=== PATIENT | female | born 1975 | race Caucasian/White ===

== ENCOUNTER 2025-04-24 02:44 | Emergency (ER) | payer SELFPAY ==
[2025-04-24 02:42] VITALS: BP 178/120; PULSE 68; RESP 16; TEMP 36.6; O2SAT 98; BMI 31.1
--- NOTE | 2025-04-24 03:11 | CTR_ITS ---
PROCEDURE INFORMATION: Exam: CT Abdomen And Pelvis Without Contrast Exam date and time: 04/24/2025 3:31 AM Age: 49 years old Clinical indication: Abdominal pain; Prior surgery; Surgery date: 6+ months; Surgery type: Hysterectomy; C/O left flank pain; Additional info: L flank->groin pain TECHNIQUE: Imaging protocol: Computed tomography of the abdomen and pelvis without contrast. Radiation optimization: All CT scans at this facility use at least one of these dose optimization techniques: automated exposure control; mA and/or kV adjustment per patient size (includes targeted exams where dose is matched to clinical indication); or iterative reconstruction. COMPARISON: No relevant prior studies available. RADIATION DOSE METRICS: Total DLP (mGy-cm): 573.06 FINDINGS: Liver: Normal. No mass. Gallbladder and biliary ducts: Normal. No calcified stones. No ductal dilation. Pancreas: Normal. No ductal dilation. Spleen: Normal. No splenomegaly. Adrenal glands: Normal. No mass. Kidneys and ureters: Nonobstructing 12 mm stone in the left renal pelvis. Left-sided parapelvic renal cysts. Stomach and bowel: Diverticulosis, without acute diverticulitis. No small bowel obstruction. No free air. Appendix: No evidence of appendicitis. Intraperitoneal space: See Stomach and bowel finding. Vasculature: Atherosclerotic changes of the aorta. Lymph nodes: Unremarkable. No enlarged lymph nodes. Urinary bladder: Unremarkable as visualized. Reproductive: Hysterectomy. Bones/joints: Degenerative changes of the spine. Disc bulge at L2-L3 with severe spinal canal stenosis. Soft tissues: Unremarkable. CT/CT kidney stone [id number] IMPRESSION: 1. Nonobstructing 12 mm stone in the left renal pelvis. No hydronephrosis. 2. Diverticulosis, without acute diverticulitis. No small bowel obstruction. No free air. 3. Hysterectomy. 4. Disc bulge at L2-L3 with severe spinal canal stenosis. COMMENTS: Consistent with the [employer]'s Incidental Findings Committee white paper (J Am Jany Radiol 2018): Any incidental renal lesion less than 1 cm or classified as too small to characterize, or any incidental cystic renal lesion characterized as simple-appearing, is likely benign. No follow-up imaging is recommended for these lesions per consensus recommendations based on imaging criteria.
[2025-04-24 03:17] VITALS: RESP 20
[2025-04-24] MEDS: morphine 4 mg/mL SDV 1 mL IVP (03:17)
[2025-04-24] MEDS: ondansetron 2 mg/ML SDV 2 mL 4 MG IVP (03:18)
[2025-04-24 03:22] LABS: Hematocrit 44.1 % (36-47); Hemoglobin 14.80 g/dL (11.27-16.99); Mean Corpuscular HGB Conc 33.6 g/dL (30-55); Mean Corpuscular Hemoglobin 27.1 pg (27-33); Mean Corpuscular Volume 80.6 fl (85-98); Nucleated Red Blood Cells % 0 %; Platelet Count 247 10^3/cmm (157-399); Red Blood Count 5.47 10^6/uL (3.85-5.65); White Blood Count 10.68 10^3/uL (3.29-11.43)
[2025-04-24 03:23] VITALS: BP 178/109; O2SAT 98
[2025-04-24 03:38] LABS: Alanine Aminotransferase 11 U/L (0-33); Albumin Level 4.1 g/dL (3.5-5.2); Alkaline Phosphatase 118 U/L (35-105); Aspartate Amino Transferase 14 U/L (0-32); Blood Urea Nitrogen 14 mg/dL (6-20); Calcium 8.9 mg/dL (8.5-10.5); Carbon Dioxide 21 mmol/L (22-29); Chloride 101 mmol/L (98-107); Globulin 3.5 g/dL (1.3-4.6); Glucose 151 mg/dL (65-115); Lipase 21 U/L (13-60); Magnesium 2.0 mg/dL (1.7-2.3); Osmolality Calculated 279 mOsm/kg (285-295); Sodium 133 mmol/L (136-145); Total Protein 7.6 g/dL (6.6-8.7)
[2025-04-24 03:50] LABS: Anion Gap 15.3 (5-19); Potassium 4.3 mmol/L (3.5-5.1)
[2025-04-24 04:06] LABS: CRP High Sensitivity Cardiac 0.260 mg/dL (0.0-0.3)
[2025-04-24 04:16] LABS: Glucose Urine UA Negative (Normal); Nitrate Urine Negative (Negative); Specific Gravity, Urine 1.028 (1.005-1.030)
[2025-04-24 04:18] LABS: Add Urine Microscopic? YES; Universal Test for UA Present (0)
--- NOTE | 2025-04-24 05:11 | ED_ITS ---
HPI - Abdominal Pain 2 General: Chief Complaint: Abdominal Pain Stated Complaint: possible kidney stone Time Seen by Provider: 04/24/25 02:50 History of Present Illness: Patient presents with a history of hypertension and kidney stones who presents to the ED with left flank pain. The pain is waxing and waning, sharp in nature, radiates to the front of her abdomen, had 1 episode of nausea vomiting tonight, no diarrhea or constipation, some minor dysuria. She has had no recent fevers, chills, diaphoresis, changes in appetite. No chest pain, shortness of breath, cough. No prior abdominal surgeries. Associated Symptoms: Reports nausea and vomiting Related Data Previous Rx's ?Medication ?Instructions ?Recorded ondansetron 4 mg disintegrating 4 mg PO Q8H PRN nausea and 04/24/25 tablet vomiting 5 days #20 tabs oxycodone 5 mg tablet 5 mg PO Q8H PRN pain #10 tab s 04/24/25 tamsulosin 0.4 mg capsule (Flomax) 0.4 mg PO DAILY #30 caps 04/24/25 Review of Systems 2 General: Reports: 10 or more systems reviewed and unremarkable except in HPI and below GI: Reports: nausea and vomiting : Reports: flank pain Physical Exam 2 Narrative: EXAM NARRATIVE: Appears in mild distress secondary to pain, afebrile, vital stable on arrival, overall well-appearing. Abdominal exam soft, nondistended, no reproducible tenderness, mild left CVA tenderness. Breathing comfortably on room air, no adventitious lung sounds, normal sinus rhythm with no murmurs, no leg swelling, 2+ pulses throughout, good cap refill, GCS 15. Course 2 Vital Signs: Vital signs: Vital Signs Temperature 98 F 04/24/25 02:42 Pulse Rate 68 04/24/25 02:42 Respiratory Rate 20 H 04/24/25 03:17 Blood Pressure 178/109 04/24/25 03:23 Pulse Oximetry 98 04/24/25 03:23 MDM - Abdominal Pain Medical Decision Making -ddx: Nephrolithiasis, pyelonephritis, perinephric abscess, aortic pathology, enteritis, pneumonia - Patient overall well-appearing, with 1 day of waxing waning left flank pain, minor urinary symptoms, 1 episode of nausea vomiting, no recent flulike symptoms, no history of abdominal surgeries, will obtain abdominal labs, CT abdomen pelvis, provide pain control, fluids and reassess. - Patient ultimately with reassuring labs, she had no systemic signs of infection including leukocytosis, fever, tachycardia, low CRP. She had no significant electrolyte abnormality, no AV, had mild alk phos elevation. Her urine had a moderate amount of blood and urate crystals. Her CT scan had a large 12 mm nonobstructing stone in her left pelvis but with her clinical signs and symptoms, believe she passed a small stone just recently because she had much pain relief shortly after the fluids had finished, no UTI behind the stone. P.o. challenged, feeling completely symptom-free at this time and discharged in stable condition with prescriptions for meds if symptoms recur, referral to urology as needed and with strict return precautions. Lab Data 04/24/25 02:48 04/24/25 02:48 Labs/Radiology: Radiology Impressions Abdomen/Pelvis CT 04/24/25 03:11 IMPRESSION: 1. Nonobstructing 12 mm stone in the left renal pelvis. No hydronephrosis. 2. Diverticulosis, without acute diverticulitis. No small bowel obstruction. No free air. 3. Hysterectomy. 4. Disc bulge at L2-L3 with severe spinal canal stenosis. COMMENTS: Consistent with the [employer]'s Incidental Findings Committee white paper (J Am Jany Radiol 2018): Any incidental renal lesion less than 1 cm or classified as too small to characterize, or any incidental cystic renal lesion characterized as simple-appearing, is likely benign. No follow-up imaging is recommended for these lesions per consensus recommendations based on imaging criteria. Laboratory Results WBC 10.68 10^3/uL (3.29-11.43) 04/24/25 02:48 RBC 5.47 10^6/uL (3.85-5.65) 04/24/25 02:48 Hgb 14.80 g/dL (11.27-16.99) 04/24/25 02:48 Hct 44.1 % (36-47) 04/24/25 02:48 MCV 80.6 fl (85-98) L 04/24/25 02:48 MCH 27.1 pg (27-33) 04/24/25 02:48 MCHC 33.6 g/dL (30-55) 04/24/25 02:48 RDW 13.6 % (12.1-15.1) 04/24/25 02:48 Plt Count 247 10^3/cmm (157-399) 04/24/25 02:48 MPV 10.6 fL (7.4-10.4) H 04/24/25 02:48 Neut % (Auto) 85.9 % 04/24/25 02:48 Lymph % (Auto) 11.2 % 04/24/25 02:48 [place] % (Auto) 2.2 % 04/24/25 02:48 Eos % (Auto) 0.0 % 04/24/25 02:48 Baso % (Auto) 0.3 % 04/24/25 02:48 Neut # (Auto) 9.17 10^3/uL (1.8-7.7) H 04/24/25 02:48 Lymph # (Auto) 1.2 10^3/uL (0.8-4.8) 04/24/25 02:48 [place] # (Auto) 0.2 10^3/uL (0.2-0.9) 04/24/25 02:48 Eos # (Auto) 0.0 10^3/uL (0.0-0.8) 04/24/25 02:48 Baso # (Auto) 0.0 10^3/uL (0.0-0.1) 04/24/25 02:48 Nucleated RBC % (auto) 0 % 04/24/25 02:48 Nucleated RBCs # 0.0 /100WBC 04/24/25 02:48 Sodium 133 mmol/L (136-145) L 04/24/25 02:48 Potassium 4.3 mmol/L (3.5-5.1) 04/24/25 02:48 Chloride 101 mmol/L (98-107) 04/24/25 02:48 Carbon Dioxide 21 mmol/L (22-29) L 04/24/25 02:48 Anion Gap 15.3 (5-19) 04/24/25 02:48 BUN 14 mg/dL (6-20) 04/24/25 02:48 Creatinine 0.7 mg/dL (0.5-0.9) 04/24/25 02:48 GFR Calculation 88.6 mL/min (90-130) L 04/24/25 02:48 Glucose 151 mg/dL (65-115) H 04/24/25 02:48 Calculated Osmolality 279 mOsm/kg (285-295) L 04/24/25 02:48 Calcium 8.9 mg/dL (8.5-10.5) 04/24/25 02:48 Phosphorus 2.8 mg/dL (2.5-4.5) 04/24/25 02:48 Magnesium 2.0 mg/dL (1.7-2.3) 04/24/25 02:48 Total Bilirubin 0.8 mg/dL (0.15-1.2) 04/24/25 02:48 AST 14 U/L (0-32) 04/24/25 02:48 ALT 11 U/L (0-33) 04/24/25 02:48 Alkaline Phosphatase 118 U/L (35-105) H 04/24/25 02:48 C-React Prot High Sens 0.260 mg/dL (0.0-0.3) 04/24/25 02:48 Total Protein 7.6 g/dL (6.6-8.7) 04/24/25 02:48 Albumin 4.1 g/dL (3.5-5.2) 04/24/25 02:48 Globulin 3.5 g/dL (1.3-4.6) 04/24/25 02:48 Lipase 21 U/L (13-60) 04/24/25 02:48 Urine Color Yellow (Yellow) 04/24/25 04:09 Urine Appearance Turbid (CLEAR) A 04/24/25 04:09 Urine pH 5.5 (5-7) 04/24/25 04:09 Ur Specific [place] 1.028 (1.005-1.030) 04/24/25 04:09 Urine Protein 2+ (Negative) A 04/24/25 04:09 Urine Glucose (UA) Negative (Normal) 04/24/25 04:09 Urine Ketones 1+ (Negative) H 04/24/25 04:09 Urine Blood 3+ (Negative) A 04/24/25 04:09 Urine Nitrate Negative (Negative) 04/24/25 04:09 Urine Bilirubin Negative (Negative) 04/24/25 04:09 Urine Urobilinogen 1.0 mg/dL (Negative) 04/24/25 04:09 Ur Leukocyte Esterase Negative (Negative) 04/24/25 04:09 Urine RBC 21-50 /hpf (0-2) H 04/24/25 04:09 Urine WBC 0-5 /hpf (0-5) 04/24/25 04:09 Ur Squamous Epith Cells 0-5 /hpf (0-5) 04/24/25 04:09 Uric Acid Crystals 25-40 /hpf H 04/24/25 04:09 Amorphous Sediment Not Reportable 04/24/25 04:09 Urine Bacteria None seen /hpf (NONE) 04/24/25 04:09 Hyaline Casts 0.40 /lpf 04/24/25 04:09 Urine Yeast 1+ /hpf H 04/24/25 04:09 All radiology interpretation(s) finalized by discharge Discharge Plan Discharge Patient Disposition: Home Clinical Impression: Calculus of kidney Condition: Stable Prescriptions: New oxycodone 5 mg tablet 5 mg PO Q8H PRN (Reason: pain) Qty: 10 0RF tamsulosin [Flomax] 0.4 mg capsule 0.4 mg PO DAILY Qty: 30 0RF ondansetron 4 mg tablet,disintegrating 4 mg PO Q8H PRN (Reason: nausea and vomiting) 5 Days Qty: 20 0RF Discharge Orders: Discharge ED (Routine); Ordered 04/24/25 Ordered By: Ethan Kraus Referrals: Baltazar Rosario MD [Referring, Urology] - 4-7 days Discharge Diet: Usual diet Discharge Activity: Increase activity as tolerated Patient Instructions: Abdominal Pain (ED), Opioid Safety, Pain Management, Patient Portal & Michelle Instructions Activity Restrictions/Additional Instructions: You were seen for your back pain, you were evaluated with a CT scan and labs which found you to have a large kidney stone stone your kidney and then some smaller kidney stones that have probably just passed in your urine, because your labs were otherwise reassuring you were deemed stable for discharge home. The best prevention for future kidney stones is ensuring you stay hydrated. If you would do develop similar pain, start taking the Flomax once daily to help push along the stone. Alternate Tylenol 650 mg and ibuprofen 4 to milligrams every 4 hours for the pain, use oxycodone 5 mg every 8 hours as needed for breakthrough pain on top of this. He uses Zofran, 4 mg up to 3 times a day for nausea. If you wish to further have your kidney stones evaluated, make a follow-up appointment with the urology clinic listed above. Return to the ED with severe worsening of your pain, inability to urinate, continuous vomiting, fevers, episodes of passing out, any other emergent concerns. Print Language: Chilean Coding Level of Care Code ED [employer] for Crow Yu
[2025-04-24 05:21] VITALS: BP 148/100
[2025-04-24 05:38] VITALS: BP 135/96; PULSE 82; O2SAT 98
== END 2025-04-24 05:40 | disposition home or self-care (01) ==
PROVIDERS: Emergency Provider Student in an Organized Health Care Education/Training Program
DX: N20.0 Calculus of kidney (principal)
CPT/HCPCS: 74176; 80053; 81001; 83690; 83735; 84100; 85025; 86141; 87086; 96361; 96374; 96375; 99285; J1885; J2270; J2405; J7030

== ENCOUNTER 2025-05-12 10:50 | Emergency (ER) | payer SELFPAY ==
[2025-05-12 10:57] VITALS: BP 198/119; PULSE 69; RESP 17; TEMP 36.6; O2SAT 100; BMI 30.5
--- NOTE | 2025-05-12 12:14 | CT_ITS ---
WS: [id number] CT ABDOMEN AND PELVIS NONCONTRAST HISTORY: L flank pain TECHNIQUE: Imaging performed through the abdomen and pelvis. Coronal and sagittal reformats are submitted. All CT scans at [facility] use at least one of these dose optimization techniques: automated exposure control; mA and/or kV adjustment per patient size (includes targeted exams where dose is matched to clinical indication); or iterative reconstruction. DLP: 485.53 mGy.cm COMPARISON: 04/24/2025 Lower thorax: Lung bases are clear. Visualized heart is normal. Small hiatal hernia. Liver: Normal size liver. No mass or bile duct dilatation. Gallbladder: Normal gallbladder. No pericholecystic fluid or cholelithiasis. No gallbladder wall thickening. Pancreas: Normal size and attenuation. Normal pancreatic duct. No pancreatitis or mass. Spleen: Normal. Adrenal glands: Normal. No mass. Right kidney: Normal size kidney with no mass or hydronephrosis. Left kidney: Ovoid calcification in the central LEFT renal pelvis measures 7 x 12 mm. Similar appearance send location as 04/24/2025. There are additional left-sided parapelvic cysts. The LEFT ureter is normal caliber. Aorta: Mild atherosclerosis abdominal aorta with no aneurysm. No free fluid, intraperitoneal air or significant lymphadenopathy. GI tract: Normal noncontrast imaging of the stomach, small bowel and colon. No obstruction or wall thickening. Normal appendix. Abdominal wall: Negative. No hernia. Pelvis: No fluid or adenopathy. Prior hysterectomy. Osseous structures: Degenerative disc disease at L3-4. CT/CT kidney stone [id number] IMPRESSION: 1. Calcification in the central LEFT renal pelvis measures 7 x 12 mm. Similar in appearance to 04/24/2025. There is no significant inflammation associated wi th the renal calcification. Could be causing intermittent obstruction. No perin ephric stranding. 2. No free fluid or adenopathy. 3. Prior hysterectomy.
--- NOTE | 2025-05-12 12:14 | ED_ITS ---
HPI - Abdominal Pain 2 General: Chief Complaint: Abdominal Pain Stated Complaint: L side Pain towards kidney N Time Seen by Provider: 05/12/25 12:11 Source: patient Mode of arrival: ambulatory Limitations: no limitations History of Present Illness: 49-year-old female with history of kidne y stone states she was seen here on April 24 and was diagnosed with nonobstructing stones states that she is continue to have daily pain. States the pain is sharp in nature rates it a 9 out of 10 denies any dysuria denies any vomiting. She denies any worse improved factors. Related Data Previous Rx's ?Medication ?Instructions ?Recorded tamsulosin 0.4 mg capsule (Flomax) 0.4 mg PO DAILY #30 caps 04/24/25 oxycodone 5 mg tablet 5 mg PO Q8H PRN pain #10 tab s 05/12/25 Allergies Allergy/AdvReac Type Severity Reaction Status Date / Time No Known Allergies Allergy Verified 05/12/25 11:00 Physical Exam 2 Const: COMMON NORMALS: no acute distress, patient oriented x3 and healthy appearing HENMT: COMMON NORMALS: normocephalic and atraumatic HEAD & SCALP: n ormocephalic and atraumatic Neck/C-Spine: COMMON NORMALS: full ROM and supple Chest: COMMONS NORMALS: normal inspection of the chest Resp: COMMON NORMALS: normal respiratory effort Cardio: COMMON NORMALS: regular rate, regular rhythm and No murmurs present (Cardio) RATE: regular rate RHYTHM: regular rhythm GI: COMMON NORMALS: Normal to inspection, nondistended, normoactive bowel sounds present, Soft to palpation, non-tender and no masses PALPATION: Yes Soft to palpation Extremity: COMMON NORMALS: normal to inspection and full ROM Neuro: COMMON NORMALS: patient oriented x3, moves all extremities and no focal motor deficits Psych: COMMON NORMALS: mental status grossly normal, Normal thought process present and cooperative THOUGHT PROCESS: Normal thought process present Skin: COMMON NORMALS: no rashes or lesions noted and no wounds GENERAL SKIN EXAM: no rashes or lesions noted Course 2 Vital Signs: Vital signs: Vital Signs Temperature 97.9 F 05/12/25 10:57 Pulse Rate 65 05/12/25 14:05 Respiratory Rate 16 05/12/25 12:28 Blood Pressure 148/102 05/12/25 14:05 Pulse Oximetry 96 05/12/25 14:05 Oxygen Delivery Me thod Room Air 05/12/25 14:05 MDM - Abdominal Pain Medical Decision Making Patient presents here with flank abdominal pain differential includes pyelonephritis, kidney stone, diverticulitis. Did review CT scan does show a kidney stone but no signs of obstruction patient has no significant lab normalities no signs of urinary tract infection or pyelonephritis. Her pain has improved here she is stable for discharge at this time likely having some intermittent pain from the kidney stone she is to follow-up with urology return if worsening she understands agrees to plan. Medical Records I reviewed the patient's medical records. Lab Data I reviewed the patient's lab results. 05/12/25 12:16 05/12/25 12:16 Labs/Radiology: Radiology Impressions Abdomen/Pelvis CT 05/12/25 12:14 IMPRESSION: 1. Calcification in the central LEFT renal pelvis measures 7 x 12 mm. Similar in appearance to 04/24/2025. There is no significant inflammation associated with the renal calcification. Could be causing intermittent obstruction. No perinephric stranding. 2. No free fluid or adenopathy. 3. Prior hysterectomy. Laboratory Results WBC 12.66 10^3/uL (3.29-11.43) H 05/12/25 12:16 RBC 5.82 10^6/uL (3.85-5.65) H 05/12/25 12:16 Hgb 15.50 g/dL (11.27-16.99) 05/12/25 12:16 Hct 48.8 % (36-47) H 05/12/25 12:16 MCV 83.8 fl (85-98) L 05/12/25 12:16 MCH 26.6 pg (27-33) L 05/12/25 12:16 MCHC 31.8 g/dL (30-55) 05/12/25 12:16 RDW 13.2 % (12.1-15.1) 05/12/25 12:16 Plt Count 286 10^3/cmm (157-399) 05/12/25 12:16 MPV 9.2 fL (7.4-10.4) 05/12/25 12:16 Neut % (Auto) 81.3 % 05/12/25 12:16 Lymph % (Auto) 15.0 % 05/12/25 12:16 [place] % (Auto) 2.9 % 05/12/25 12:16 Eos % (Auto) 0.3 % 05/12/25 12:16 Baso % (Auto) 0.2 % 05/12/25 12:16 Neut # (Auto) 10.28 10^3/uL (1.8-7.7) H 05/12/25 12:16 Lymph # (Auto) 1.9 10^3/uL (0.8-4.8) 05/12/25 12:16 [place] # (Auto) 0.4 10^3/uL (0.2-0.9) 05/12/25 12:16 Eos # (Auto) 0.0 10^3/uL (0.0-0.8) 05/12/25 12:16 Baso # (Auto) 0.0 10^3/uL (0.0-0.1) 05/12/25 12:16 Nucleated RBC % (auto) 0 % 05/12/25 12:16 Nucleated RBCs # 0.0 /100WBC 05/12/25 12:16 Sodium 138 mmol/L (136-145) 05/12/25 12:16 Potassium 3.9 mmol/L (3.5-5.1) 05/12/25 12:16 Chloride 103 mmol/L (98-107) 05/12/25 12:16 Carbon Dioxide 21 mmol/L (22-29) L 05/12/25 12:16 Anion Gap 17.9 (5-19) 05/12/25 12:16 BUN 16 mg/dL (6-20) 05/12/25 12:16 Creatinine 0.9 mg/dL (0.5-0.9) 05/12/25 12:16 GFR Calculation 66.3 mL/min (90-130) L 05/12/25 12:16 Glucose 121 mg/dL (65-115) H 05/12/25 12:16 Calculated Osmolality 288 mOsm/kg (285-295) 05/12/25 12:16 Calcium 9.2 mg/dL (8.5-10.5) 05/12/25 12:16 Total Bilirubin 0.3 mg/dL (0.15-1.2) 05/12/25 12:16 AST 13 U/L (0-32) 05/12/25 12:16 ALT 12 U/L (0-33) 05/12/25 12:16 Alkaline Phosphatase 100 U/L (35-105) 05/12/25 12:16 Total Protein 8.1 g/dL (6.6-8.7) 05/12/25 12:16 Albumin 4.4 g/dL (3.5-5.2) 05/12/25 12:16 Globulin 3.7 g/dL (1.3-4.6) 05/12/25 12:16 Lipase 20 U/L (13-60) 05/12/25 12:16 Urine Color Yellow (Yellow) 05/12/25 12:00 Urine Appearance Clear (CLEAR) 05/12/25 12:00 Urine pH 5.5 (5-7) 05/12/25 12:00 Ur Specific [place] 1.028 (1.005-1.030) 05/12/25 12:00 Urine Protein 2+ (Negative) A 05/12/25 12:00 Urine Glucose (UA) Negative (Normal) 05/12/25 12:00 Urine Ketones Negative (Negative) 05/12/25 12:00 Urine Blood 3+ (Negative) A 05/12/25 12:00 Urine Nitrate Negative (Negative) 05/12/25 12:00 Urine Bilirubin Negative (Negative) 05/12/25 12:00 Urine Urobilinogen 0.2 mg/dL (Negative) 05/12/25 12:00 Ur Leukocyte Esterase Negative (Negative) 05/12/25 12:00 Urine RBC >100 /hpf (0-2) H 05/12/25 12:00 Urine WBC 0-5 /hpf (0-5) 05/12/25 12:00 Ur Squamous Epith Cells 0-5 /hpf (0-5) 05/12/25 12:00 Amorphous Sediment Not Reportable 05/12/25 12:00 Urine Bacteria None seen /hpf (NONE) 05/12/25 12:00 Hyaline Casts 0.81 /lpf 05/12/25 12:00 All radiology interpretation(s) finalized by discharge Discharge Plan Discharge Patient Disposition: Home Clinical Impression: Kidney stone Condition: Stable Prescriptions: Continued oxycodone 5 mg tablet 5 mg PO Q8H PRN (Reason: pain) Qty: 10 0RF No Action tamsulosin [Flomax] 0.4 mg capsule 0.4 mg PO DAILY Qty: 30 0RF Discharge Orders: Discharge ED (Routine); Ordered 05/12/25 Ordered By: Harley Brown Discharge Diet: Advance as tolerated Discharge Activity: Resume usual activity Patient Instructions: Kidney Stones (ED), Opioid Safety Print Language: Icelandic Coding Level of Care Code ED Color Television Console Monitor for Crow Yu
[2025-05-12 12:22] LABS: Hematocrit 48.8 % (36-47); Hemoglobin 15.50 g/dL (11.27-16.99); Mean Corpuscular HGB Conc 31.8 g/dL (30-55); Mean Corpuscular Hemoglobin 26.6 pg (27-33); Mean Corpuscular Volume 83.8 fl (85-98); Nucleated Red Blood Cells % 0 %; Platelet Count 286 10^3/cmm (157-399); Red Blood Count 5.82 10^6/uL (3.85-5.65); White Blood Count 12.66 10^3/uL (3.29-11.43)
[2025-05-12 12:28] VITALS: RESP 16; O2SAT 99
[2025-05-12] MEDS: ondansetron 2 mg/ML SDV 2 mL 4 MG IVP (12:28)
[2025-05-12] MEDS: morphine 4 mg/mL SDV 1 mL IVP (12:28)
[2025-05-12 12:34] LABS: Glucose Urine UA Negative (Normal); Nitrate Urine Negative (Negative); Specific Gravity, Urine 1.028 (1.005-1.030)
[2025-05-12 12:39] LABS: Add Urine Microscopic? YES
[2025-05-12 12:44] LABS: Alanine Aminotransferase 12 U/L (0-33); Albumin Level 4.4 g/dL (3.5-5.2); Alkaline Phosphatase 100 U/L (35-105); Anion Gap 17.9 (5-19); Aspartate Amino Transferase 13 U/L (0-32); Blood Urea Nitrogen 16 mg/dL (6-20); Calcium 9.2 mg/dL (8.5-10.5); Carbon Dioxide 21 mmol/L (22-29); Chloride 103 mmol/L (98-107); Globulin 3.7 g/dL (1.3-4.6); Glucose 121 mg/dL (65-115); Lipase 20 U/L (13-60); Osmolality Calculated 288 mOsm/kg (285-295); Potassium 3.9 mmol/L (3.5-5.1); Sodium 138 mmol/L (136-145); Total Protein 8.1 g/dL (6.6-8.7)
[2025-05-12 12:51] VITALS: BP 183/126; O2SAT 97
[2025-05-12 13:22] VITALS: BP 148/95; PULSE 67; O2SAT 97
--- NOTE | 2025-05-12 13:23 | PC.NURSE ---
Assumed Pt. care.
[2025-05-12 14:05] VITALS: BP 148/102; PULSE 65; O2SAT 96
[2025-05-12 14:18] VITALS: BP 148/108; PULSE 69; O2SAT 95
== END 2025-05-12 14:18 | disposition home or self-care (01) ==
PROVIDERS: Emergency Provider Emergency Medicine
DX: N20.0 Calculus of kidney (principal); Z87.442 Personal history of urinary calculi
CPT/HCPCS: 36415; 74176; 80053; 81001; 83690; 85025; 87086; 96374; 96375; 99285; J1885; J2270; J2405

== ENCOUNTER 2025-05-13 22:43 | Emergency (ER) | payer SELFPAY ==
[2025-05-13 22:44] VITALS: BP 179/113; PULSE 84; RESP 16; TEMP 36.3; O2SAT 100; BMI 30.5
--- OUTSIDE RECORDS SUMMARY | 2025-05-13 22:48 | XMS_ITS | Clinical Summary ---
Author Organization [facility] Address [address] [place] [id number] Care Team Providers Care [employer] [employer] Name Role Phone Charlee Decker MD Primary Care Provider [phone] Allergies No known active allergies Medications ondansetron (ZOFRAN) 4 mg TabletIndicatio ns:Nephrolithia sis Take 1 Tablet (4 mg) by mouth every 8 hours as needed for Nausea/Emesi s. 21 Tablet 1 07/31/2024 Active traMADoL (Ultram) 50 mg tabletIndicatio ns:Nephrolithia sis Take 1 Tablet (50 mg) by mouth every 6 hours as needed for Pain. 56 Tablet 08/17/2024 Active naproxen (NAPROSYN) 250 mg tabletIndicatio ns:Flank pain,Abdominal pain, acute, left lower quadrant Take 1 Tablet (250 mg) by mouth 2 times daily with meals. 30 Tablet 1 09/07/2024 Active HYDROcodone-jono taminophen (NORCO) 5-325 mg tabletIndicatio ns:Nephrolithia sis Take 1 Tablet by mouth every 8 hours as needed for Pain, Moderate. Max Daily Amount: 3 Tablets 21 Tablet 09/17/2024 Active Active Problems Problem Noted Date Diagnosed Date Nephrolithiasis 07/31/2024 Migraine with aura and witho ut status migrainosus, not intractable 07/31/2024 Total Hysterectomy 07/31/2024 Family history of colon canc er requiring screening colonoscopy 07/31/2024 Encounters Date Type Department Care Team Description 04/24/2025 12:55 AM [facility] - 04/24/2025 11:59 PM [facility] Hospital Encounter [facility] Emergency Medical Services [address] [phone] Ambulance, [facility] Discharge Disposition: [facility] 03/24/2025 External Device Data STL ABSTRACTION Provider, Abstract 03/23/2025 External Device Data ST[facility] ABSTRACTION Provider, Abstract 02/16/2025 External Device Data STL ABSTRACTION Provider, Abstract from Last 3 Months Family History Medical History Relation Name Comments Colon Cancer Father Relation Name Status Comments Father Mother Alive Social History Tobacco Use Types Packs/Day Years Used Date Smoking Tobacco: Never Smokeless Tobacco: Never Tobacco Cessation:Counseling Given: Not Answered Alcohol Use Standard Drinks/Week Comments Never 0 (1 standard drink = 0.6 oz pur e alcohol) Comments No Sex and Gender Information Value Date Recorded Sex Assigned at Not on file Legal Sex Female 8:21 AM [facility] Gender Identity Not on file Sexual Orientation Not on file Last Filed Vital Signs Vital Sign Reading Time Taken Comments Blood Pressure 170/109 09/07/2024 2:00 PM CDT Pulse 105 09/07/2024 1:41 PM CDT Temperature 37.2 C (98.9 F) 09/07/2024 1:41 PM CDT Respiratory Rate 18 09/07/2024 1:41 PM CDT Oxygen Saturation 100% 09/07/2024 1:41 PM CDT Inhaled Oxygen Concentration - - Weight 69 kg (152 lb 3.2 oz) 09/07/2024 1:41 PM CDT Height 160 cm (5' 3 ) 09/07/2024 1:41 PM CDT Body Mass Index 26.96 09/07/2024 1:41 PM CDT Plan of Treatment Health Maintenance Due Date Last Done Comments Pre-Diabetes and Diabetes Screening 1974 DTAP/TDAP/TD VACCINES (1 - Tdap) 1993 HEPATITIS B VACCINES (1 of 3 - 19+ 3-dose series) 10/01 COLORECTAL SCREENING 10/11/2019 Colorectal Cancer Screening 10/11/2019 FIT-DNA Q 3 years 10/11/2019 FIT/FOBT Q 1 year 10/11/2019 Flex Sig/CT Colonography Q 5 years 10/11/2019 ZOSTER VACCINE (1 of 2) 2024 INFLUENZA VACCINE (#1) 2025 BREAST CANCER SCREENING 09/10/2025 09/10/2024 Procedures Procedure Name Priority Date/Time Associated Diagnosis Comments MAMMO 3D LUIS SCREEN BILAT W OR WO CAD Routine 09/10/2024 10:32 AM CDT Screening mammogram, encounter for from Last 3 Months or Most Recently Relevant to Health Maintenance Results * MAMMO 3D LUIS SCREEN BILAT W OR WO CAD (09/10/2024 10:32 AM CDT) Anatomical Region Laterality Modality Breast Bilateral Mammography, Dig ital Radiography Impressions 09/16/2024 4:28 PM CDT : No mammographic evidence of malignancy. BI-RADS ASSESSMENT: 1 - Negative RECOMMENDATION: Routine annual screening mammography. Narrative 09/16/2024 4:28 PM CDT EXAM: MAMMO SCRN BILAT 3D LUIS W OR WO CAD INDICATION: Screening COMPARISON: This is the patient's Baseline Mammogram. No comparisons are available. BREAST COMPOSITION: There are scattered areas of fibroglandular density. FINDINGS: RIGHT BREAST: There are no suspicious masses, calcifications, or areas of architectural distortion. LEFT BREAST: There are no suspicious masses, calcifications, or areas of architectural distortion. Karolyn Santos [employer] MAMMO ORDERABLES Final R esult from Last 3 Months or Most Recently Relevant to Health Maintenance Care Teams [employer] [employer] Relationship Specialty Start Date End Date Charlee Decker MD [address] [place] [id number] PCP - General Family Practice 07/31/24
[2025-05-13 23:47] LABS: Hematocrit 47.9 % (36-47); Hemoglobin 15.00 g/dL (11.27-16.99); Mean Corpuscular HGB Conc 31.3 g/dL (30-55); Mean Corpuscular Hemoglobin 26.5 pg (27-33); Mean Corpuscular Volume 84.6 fl (85-98); Nucleated Red Blood Cells % 0 %; Platelet Count 289 10^3/cmm (157-399); Red Blood Count 5.66 10^6/uL (3.85-5.65); White Blood Count 13.57 10^3/uL (3.29-11.43)
[2025-05-14 00:07] VITALS: BP 200/116; PULSE 70; O2SAT 100
[2025-05-14 00:31] LABS: Alanine Aminotransferase 12 U/L (0-33); Albumin Level 4.4 g/dL (3.5-5.2); Alkaline Phosphatase 102 U/L (35-105); Anion Gap 17.1 (5-19); Aspartate Amino Transferase 13 U/L (0-32); Blood Urea Nitrogen 12 mg/dL (6-20); Calcium 9.2 mg/dL (8.5-10.5); Carbon Dioxide 22 mmol/L (22-29); Chloride 100 mmol/L (98-107); Globulin 3.6 g/dL (1.3-4.6); Glucose 157 mg/dL (65-115); Osmolality Calculated 283 mOsm/kg (285-295); Potassium 4.1 mmol/L (3.5-5.1); Sodium 135 mmol/L (136-145); Total Protein 8.0 g/dL (6.6-8.7)
[2025-05-14 00:49] LABS: Glucose Urine UA Negative (Normal); Nitrate Urine Negative (Negative); Specific Gravity, Urine 1.017 (1.005-1.030)
[2025-05-14 00:54] LABS: Add Urine Microscopic? YES
[2025-05-14 01:06] VITALS: BP 153/102; PULSE 79; O2SAT 98
--- NOTE | 2025-05-14 01:48 | ED_ITS ---
HPI - General Adult 2 General: Chief complaint: Abdominal Pain Stated complaint: Kidney stone Time Seen by Provider: 05/13/25 23:49 History of Present Illness: Patient is a 49-year-old female with a history of hypertension, kidney stones presents with a chief complaint of left low back pain. Patient states this worsened with movement, states her kidney hurts. Patient is also complaining of epigastric and upper abdomen pain that started today. Patient denies fever, chest pain, shortness of breath, cough, hemoptysis or syncope. Patient denies dysuria or hematuria. She denies change in bowel habits, denies diarrhea, constipation or blood in stool. Patient denies any history of abdominal surgeries. Patient was evaluated in our emergency department yesterday, is returning due to uncontrolled pain at home with oxycodone which does nothing for me. CT on 05/12/25 shows: IMPRESSION: 1. Calcification in the central LEFT re nal pelvis measures 7 x 12 mm. Similar in appearance to 04/24/2025. There is no significant inflammation associated with the renal calcification. Could be causing intermittent obstruction. No perinephric stranding. 2. No free fluid or adenopathy. 3. Prior hysterectomy. Regarding left low back pain, patient states that this has been ongoing for months, does not radiate to the lower extremities, is not associated with midline back pain, she denies loss of bowel or bladder control or paresthesia/saddle anesthesia in the lower extremities. Denies IVDU. Related Data Previous Rx's ?Medication ?Instructions ?Recorded tamsulosin 0.4 mg capsule (Flomax) 0.4 mg PO DAILY #30 caps 04/24/25 oxycodone 5 mg tablet 5 mg PO Q8H PRN pain #10 tab s 05/12/25 famotidine 40 mg tablet (Pepcid) 40 mg PO DAILY #30 ta bs 05/14/25 methocarbamol 500 mg tablet 1,000 mg (2 x 500 mg) PO T ID #30 05/14/25 tabs Allergies Allergy/AdvReac Type Severity Reaction Status Date / Time No Known Allergies Allergy Verified 05/12/25 11:00 Physical Exam 2 Narrative: EXAM NARRATIVE: Vital signs were reviewed. Patient is alert and oriented. She is tearful. Patient is breathing comfortably, no increased WOB or accessory muscle use. SpO2 is above 95% on RA. Patient has clear lungs b/l, no rhonchi, wheezing or crackles. No hypotension or tachycardia. Abdomen is soft, nondistended . +Tenderness in RUQ and epigastric region. No CVA tenderness w/percussion of either flank. Patient is moving all extremities, no deformity or gross injury. No lower extremity edema or asymmetry. Course 2 Vital Signs: Vital signs: Vital Signs Temperature 97.3 F L 05/13/25 22:44 Pulse Rate 80 05/14/25 02:06 Respiratory Rate 16 05/13/25 22:44 Blood Pressure 159/120 05/14/25 02:06 Pulse Oximetry 100 05/14/25 02:06 Oxygen Delivery Me thod Room Air 05/14/25 00:07 MDM - General Adult Medical Decision Making 49yo F w/cc of acute on chronic exacerbation of left low back pain not responsive to oxycodone and epigastric and right upper quadrant abdominal pain that started in the past few days. Differential diagnosis includes, but is not limited to, pancreatitis, cholecystitis, gastroenteritis, appendicitis, urinary tract infection, pyelonephritis, nephrolithiasis, SBO, diverticulitis, muscle spasm, lumbar strain, radiculopathy, sciatica, other. On initial exam, patient is hemodynamically stable and nontoxic appearing. Patient was evaluated with CBC, CMP, lipase, UA and US gallbladder. Patient was treated with IV Derby of, IV Reglan, p.o. hyoscyamine and GI cocktail. Patient has a mildly elevated white blood cell count which is nonspecific. She is not anemic. Patient has no actionable electrolyte abnormalities, has normal kidney function, liver function and lipase. UA is not consistent with infection and there is no hematuria. I reviewed CT scan from 05/12/2025 which does not show acute findings, comments on calcification of the central left renal pelvis with a similar appearance to previous without inflammation or perinephric stranding. US gallbladder shows: IMPRESSION: Unremarkable portal venous spectral waveform with hepatopetal blood flow. No portal venous thrombus. There is no gallbladder disease ntoed. CXR does not show any acute findings. Patient states that she has not had relief but medications that were previously given, she was given a dose of morphine. Considering gastritis or peptic ulcer disease as a cause of her abdominal pain but this can be further evaluated on outpatient basis. Her left low back pain may be consistent consistent with lumbar back strain and musculoskeletal pain, will prescribe muscle relaxers. At this time, patient is stable for outpatient management. Patient was counseled on supportive care at home, given return precautions and discharged in stable condition with recommendation for outpatient follow-up with primary care nurse or doctor. Lab Data 05/13/25 23:41 05/13/25 23:41 Radiology Impressions Chest X-Ray 05/14/25 01:50 IMPRESSION: No acute findings. Gallbladder Ultrasound 05/14/25 01:50 IMPRESSION: Unremarkable portal venous spectral waveform with hepatopetal blood flow. No portal venous thrombus. IMPRESSION: No acute sonographic findings to explain the patient's symptoms. Laboratory Results WBC 13.57 10^3/uL (3.29-11.43) H 05/13/25 23:41 RBC 5.66 10^6/uL (3.85-5.65) H 05/13/25 23:41 Hgb 15.00 g/dL (11.27-16.99) 05/13/25 23:41 Hct 47.9 % (36-47) H 05/13/25 23:41 MCV 84.6 fl (85-98) L 05/13/25 23:41 MCH 26.5 pg (27-33) L 05/13/25 23:41 MCHC 31.3 g/dL (30-55) 05/13/25 23:41 RDW 13.0 % (12.1-15.1) 05/13/25 23:41 Plt Count 289 10^3/cmm (157-399) 05/13/25 23:41 MPV 9.5 fL (7.4-10.4) 05/13/25 23:41 Neut % (Auto) 87.0 % 05/13/25 23:41 Lymph % (Auto) 10.5 % 05/13/25 23:41 [place] % (Auto) 1.9 % 05/13/25 23:41 Eos % (Auto) 0.2 % 05/13/25 23:41 Baso % (Auto) 0.2 % 05/13/25 23:41 Neut # (Auto) 11.80 10^3/uL (1.8-7.7) H 05/13/25 23:41 Lymph # (Auto) 1.4 10^3/uL (0.8-4.8) 05/13/25 23:41 [place] # (Auto) 0.3 10^3/uL (0.2-0.9) 05/13/25 23:41 Eos # (Auto) 0.0 10^3/uL (0.0-0.8) 05/13/25 23:41 Baso # (Auto) 0.0 10^3/uL (0.0-0.1) 05/13/25 23:41 Nucleated RBC % (auto) 0 % 05/13/25 23:41 Nucleated RBCs # 0.0 /100WBC 05/13/25 23:41 Sodium 135 mmol/L (136-145) L 05/13/25 23:41 Potassium 4.1 mmol/L (3.5-5.1) 05/13/25 23:41 Chloride 100 mmol/L (98-107) 05/13/25 23:41 Carbon Dioxide 22 mmol/L (22-29) 05/13/25 23:41 Anion Gap 17.1 (5-19) 05/13/25 23:41 BUN 12 mg/dL (6-20) 05/13/25 23:41 Creatinine 0.7 mg/dL (0.5-0.9) 05/13/25 23:41 GFR Calculation 88.6 mL/min (90-130) L 05/13/25 23:41 Glucose 157 mg/dL (65-115) H 05/13/25 23:41 Calculated Osmolality 283 mOsm/kg (285-295) L 05/13/25 23:41 Calcium 9.2 mg/dL (8.5-10.5) 05/13/25 23:41 Total Bilirubin 0.5 mg/dL (0.15-1.2) 05/13/25 23:41 AST 13 U/L (0-32) 05/13/25 23:41 ALT 12 U/L (0-33) 05/13/25 23:41 Alkaline Phosphatase 102 U/L (35-105) 05/13/25 23:41 Total Protein 8.0 g/dL (6.6-8.7) 05/13/25 23:41 Albumin 4.4 g/dL (3.5-5.2) 05/13/25 23:41 Globulin 3.6 g/dL (1.3-4.6) 05/13/25 23:41 Lipase 16 U/L (13-60) 05/13/25 23:41 Urine Color Yellow (Yellow) 05/14/25 00:29 Urine Appearance Clear (CLEAR) 05/14/25 00:29 Urine pH 6.0 (5-7) 05/14/25 00:29 Ur Specific [place] 1.017 (1.005-1.030) 05/14/25 00:29 Urine Protein 1+ (Negative) A 05/14/25 00: Urine Glucose (UA) Negative (Normal) 05/14/25 00: Urine Ketones 1+ (Negative) H 05/14/25 00: Urine Blood Non-haemolysed trace (Negative) 05/14/25 00: Urine Nitrate Negative (Negative) 05/14/25 00: Urine Bilirubin Negative (Negative) 05/14/25 00: Urine Urobilinogen 0.2 mg/dL (Negative) 05/14/25 00:29 Ur Leukocyte Esterase Negative (Negative) 05/14/25 00:29 Urine RBC 0-2 /hpf (0-2) 05/14/25 00: Urine WBC 0-5 /hpf (0-5) 05/14/25 00:29 Ur Squamous Epith Cells 0-5 /hpf (0-5) 05/14/25 00: Amorphous Sediment Not Reportable 05/14/25 00: Urine Bacteria None seen /hpf (NONE) 05/14/25 00: Hyaline Casts 0.81 /lpf 05/14/25 00:29 All radiology interpretation(s) finalized by discharge Discharge Plan Discharge Patient Disposition: Home Clinical Impression: Left low back pain Qualifiers: Chronicity: unspecified Sciatica presence: without sciatica Qualified Code(s): M54.50 - Low back pain, unspecified Gastritis Qualifiers: Gastritis type: unspecified gastritis Chronicity: acute Gastritis bleeding: w ithout bleeding Qualified Code(s): K29.00 - Acute gastritis without bleeding Condition: Stable Prescriptions: New famotidine [Pepcid] 40 mg tablet 40 mg PO DAILY Qty: 30 0RF methocarbamol 500 mg tablet 1,000 mg PO TID Qty: 30 0RF No Action tamsulosin [Flomax] 0.4 mg capsule 0.4 mg PO DAILY Qty: 30 0RF oxycodone 5 mg tablet 5 mg PO Q8H PRN (Reason: pain) Qty: 10 0RF Discharge Orders: Discharge ED (Routine); Ordered 05/14/25 Ordered By: Yocasta Bryant Patient Instructions: Abdominal Pain (ED), Opioid Safety, Pain Management, Patient Portal & Michelle Instructions, Back Pain (ED), Gastritis (DC), Foster Diet - Adult Activity Restrictions/Additional Instructions: Take Tylenol every 6 hours for pain. You may take your previously prescribed oxycodone for severe breakthrough pain only. It is recommended you start a daily antiacid medication, famotidine 40 mg. Consider bland diet, avoid alcohol, tobacco, very spicy or acidic foods. If your symptoms are not resolving, you may need further evaluation with upper endoscopy. Regarding your low back pain, you may try Robaxin, a muscle relaxer. Take this at least 4 to 6 hours apart from oxycodone as both can make you very sleepy. Continue to monitor your condition closely at home. If your condition worsens return to the emergency department. Otherwise, please follow-up with your primary care physician within 1 week. Print Language: Georgian Coding Level of Care Code ED Tool [employer] G[employer] Inspector for [place]
--- NOTE | 2025-05-14 01:50 | XRR_ITS ---
PROCEDURE INFORMATION: Exam: XR Chest Exam date and time: 05/14/2025 2:10 AM Age: 49 years old Clinical indication: Other: Upper abd pain, lower chest pain TECHNIQUE: Imaging protocol: Radiologic exam of the chest. Views: 2 views. COMPARISON: CT kidney stone [id number] 05/12/2025 12:37 PM FINDINGS: Lungs: Unremarkable. No consolidation. Pleural spaces: Unremarkable. No pleural effusion. No pneumothorax. Heart/Mediastinum: Unremarkable. No cardiomegaly. Bones/joints: Unremarkable. XR/XR chest 2V* [id number] IMPRESSION: No acute findings.
--- NOTE | 2025-05-14 01:50 | USR_ITS ---
PROCEDURE INFORMATION: Exam: US Duplex Artery or Vein of the Abdominal and/or Reproductive Organs, Limited Exam date and time: 05/14/2025 2:22 AM Age: 49 years old Clinical indication: Abdominal pain; Epigastric; Additional info: Ruq pain TECHNIQUE: Imaging protocol: Real-time duplex ultrasound scan of the arterial or venous flow of the abdomen and/or reproductive organs, with color Doppler flow and spectral waveform analysis with image documentation. Exam focused on the region of clinical interest. Duplex exam was performed to evaluate for vascular conditions. COMPARISON: CT kidney stone [id number] 05/12/2025 12:37 PM FINDINGS: Portal venous: Spectral sonography demonstrates a patent portal vein with smooth diastolic flow and gentle undulation, likely representing mild respiratory phasicity. Blood flow is hepatopetal in orientation. No evidence of occlusive thrombus. No portal venous abnormality identified. Portal vein velocity of 34 cm/sec, within normal limits. Other findings: Spectral analysis of the portal vein was performed to exclude thrombosis in the setting of abdominal pain. PROCEDURE INFORMATION: Exam: US Abdomen, Limited; Right Upper Quadrant Exam date and time: 05/14/2025 2:22 AM Age: 49 years old Clinical indication: Abdominal pain; Epigastric; Additional info: Ruq pain TECHNIQUE: Imaging protocol: Real time ultrasound of the abdomen with image documentation. Limited exam focused on the right upper quadrant. COMPARISON: CT kidney stone [id number] 05/12/2025 12:37 PM FINDINGS: Liver: Normal. No masses. Gallbladder: The gallbladder is normal without stones, wall thickening, or pericholecystic fluid. Sonographic Nguyễn sign was negative. Biliary ducts: The common bile duct measures up to 4 mm, within normal limits. No intra or extrahepatic bile duct dilatation is noted. Pancreas: The imaged pancreas is within normal limits. No ductal dilatation is noted. Right kidney: The right kidney measures 10.4 x 4.1 x 5.0 cm. Normal renal echogenicity and echotexture. Normal cortical thickness. No hydronephrosis, nephrolithiasis, or solid renal mass is noted. Appropriate vascular color Doppler flow is noted within the renal hilum. A right extrarenal pelvis is present. Aorta: The imaged aorta is patent and nonaneurysmal. Inferior vena cava: The imaged IVC is patent. Intraperitoneal space: No ascites is present. US/US gall bladder [id number] IMPRESSION: Unremarkable portal venous spectral waveform with hepatopetal blood flow. No portal venous thrombus. IMPRESSION: No acute sonographic findings to explain the patient's symptoms.
[2025-05-14] MEDS: lidocaine 2% viscous 15 ML, aluminum-mag hydrox-simethicon 30 ML, sucralfate oral liq 1 GM PO (01:56)
[2025-05-14] MEDS: metoclopramide 5 mg/mL SDV 2 mL 10 MG IVP (01:56)
[2025-05-14] MEDS: hyoscyamine ODT 0.125 mg Tablet PO (01:56)
[2025-05-14] MEDS: acetaminophen 1,000 MG/100 ML PIGGYBACK 400 MG IV (01:57)
[2025-05-14 02:06] VITALS: BP 159/120; PULSE 80; O2SAT 100
[2025-05-14 02:27] LABS: Lipase 16 U/L (13-60)
[2025-05-14 03:43] VITALS: RESP 16
[2025-05-14] MEDS: morphine 4 mg/mL SDV 1 mL IVP (03:43)
[2025-05-14 03:53] VITALS: BP 172/95; PULSE 82; O2SAT 99
== END 2025-05-14 03:55 | disposition home or self-care (01) ==
PROVIDERS: Emergency Provider Emergency Medicine
DX: M54.50 Low back pain, unspecified (principal); K29.70 Gastritis, unspecified, without bleeding
CPT/HCPCS: 71046; 76705; 80053; 81001; 83690; 85025; 96365; 96366; 96375; 99284; J0131; J2270; J2765; J9999